=== PATIENT | female | born 1970 | race Caucasian/White ===

== ENCOUNTER 2020-06-16 08:37 | Emergency (ER) | payer OTHER, SELFPAY ==
--- NOTE | ~2020-06-16 | US_ITS ---
EXAMINATION: US venous doppler [facility] EXAM DATE: 06/16/2020 09:54 INDICATION: Left knee pain. TECHNIQUE: Multiple grayscale, color flow and Doppler images of the left lower extremity deep venous system were obtained and reviewed. There is no prior study for comparison. FINDINGS: The left common femoral, femoral and profunda veins demonstrate normal color flow, respirat ory variation, augmentation and compressibility. Compressibility, color flow confirmed within the le ft popliteal, posterior tibial, peroneal, and greater saphenous veins. IMPRESSION: 1. No left lower extremity deep venous thrombosis. Reviewed, dictated and finalized at location B. INE TECHNICIAN
[2020-06-16 09:17] VITALS: BP 151/98; PULSE 92; RESP 18; TEMP 36.1; O2SAT 100
--- NOTE | 2020-06-16 09:59 | ED.GENADULT ---
HPI - General Adult General Chief complaint: Extremity Problem,Nontraumatic Stated complaint: leg pain Time Seen by Provider: 06/16/20 09:22 Source: patient Mode of arrival: ambulatory Limitations: no limitations History of Present Illness HPI narrative: Patient is a 49-year-old -Citizen Of [place] female presented with chief complaint of pain to the posterior aspect of her left knee and upper calf that began yesterday and has continued to throb throughout the night. Patient denies the pain extending down her left calf or into her thigh. Patient denies noticeable swelling or tightness to her extremity. 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 Patient states that she has had minor aches and cramps in her legs before but this discomfort is out of the ordinary, so she became concerned. Patient states she did take Tylenol and apply Voltaren gel which helped slightly but did not resolve the pain. Patient denies any direct trauma or falls. Patient denies any shortness of breath or chest pain. Patient denies any fever, chills, cough, nausea, vomiting, diarrhea. Patient denies prior history of DVT. Patient states she has taken antibiotic for UTI but denies any chronic medical conditions Related Data Home Medications Medication Instructions Recorded Confirmed cephalexin 06/16/20 nitrofurantoin monohyd/m-cryst 06/16/20 Allergies Allergy/AdvReac Type Severity Reaction Status Date / Time seafood Allergy Severe Swelling Uncoded 06/16/20 09:27 Review of Systems Review of Systems: Narrative: CONSTITUTIONAL: Denies fever, chills, or sweats. EYES: Denies visual changes, redness, or discharge. ENT: Denies rhinorrhea, congestion, sore throat, or otalgia. CARDIOVASCULAR: Denies chest pain, palpitations, or edema. RESPIRATORY: Denies cough or dyspnea. GASTROINTESTINAL: Denies abdominal pain, nausea, vomiting, or diarrhea. GENITOURINARY: Denies dysuria or hematuria. SKIN: Denies rash or itching. MUSCULOSKELETAL: Reports left leg pain denies back pain, joint pain, or myalgia. NEUROLOGIC: Denies headache, numbness, dizziness, or weakness. PSYCHIATRIC: Denies anxiety or depression. PMFSH Social History Social History Gender identity (if verbalized by the patient): Female Exam Narrative: Exam Narrative: GENERAL: Well-appearing, well-nourished, and in no acute distress. HEAD: Normocephalic, atraumatic. EYES: PERRLA and EOMI. NECK: Supple. No adenopathy or masses. CHEST: Clear to auscultation. No respiratory distress. No wheezes rales or rhonchi HEART: Regular rate and rhythm. No murmur heard. Normal peripheral pulses. EXTREMITIES: Normal range of motion. No edema or erythema. Swelling or tightness not appreciated.cap refill distally intact. SKIN: Warm, dry, no rash. NEURO: No focal deficits. Alert and oriented x3. Gait steady. PSYCH: Normal mood and affect. Course Vital Signs Vital signs: Vital Signs Temperature 97.0 F L 06/16/20 09:17 Pulse Rate 92 06/16/20 09:17 Respiratory Rate 18 06/16/20 09:17 Blood Pressure 151/98 H 06/16/20 09:17 Pulse Oximetry 100 06/16/20 09:17 Temperature 97.0 F L 06/16/20 09:17 Pulse Rate 92 06/16/20 09:17 Respiratory Rate 18 06/16/20 09:17 Blood Pressure 151/98 H 06/16/20 09:17 Pulse Oximetry 100 06/16/20 09:17 Medical Decision Making MDM Narrative Medical decision making narrative: Patient doppler negative for DVT. Patient agrees that there has been no traua injury or no tenderness to palpation. She would like xray postponed at this time.Vitals are stable. No kanchan tenderness. ROM intact. Instructed patient to avoid strain. RICE and NSAIDS and follow up with her PCP for reevaluation if symptoms persists. Vital Signs Vital Signs: Vital Signs Temperature 97.0 F L 06/16/20 09:17 Pulse Rate 92 06/16/20 09:17 Respiratory Rate 18 06/16/20 09:17 Blood Pressure 151/98 H
== END 2020-06-16 10:27 | disposition home or self-care (01) ==
PROVIDERS: Emergency Provider Emergency Medicine; PCP Internal Medicine
DX: M25.562 Pain in left knee (principal)
CPT/HCPCS: 93971; 99284

== ENCOUNTER 2021-11-17 09:02 | Emergency (ER) | payer BC, SELFPAY ==
[2021-11-17 09:07] VITALS: BP 174/93; PULSE 86; RESP 16; TEMP 36.5; O2SAT 100
[2021-11-17 09:10] VITALS: O2SAT 99
[2021-11-17 09:15] VITALS: O2SAT 98
[2021-11-17 09:17] VITALS: BP 142/81; O2SAT 99
[2021-11-17 09:33] VITALS: O2SAT 99
[2021-11-17 09:41] LABS: D Dimer 0.31 ug/mL (<0.48)
--- NOTE | 2021-11-17 09:42 | ED.LOWEXIN ---
HPI - Extremity Injury (Lower) General Chief Complaint: Extremity Injury, Lower Stated Complaint: RLE spot Time Seen by Provider: 11/17/21 09:11 History of Present Illness HPI Narrative: 51-year-old female presented to the emergency room for evaluation of a bruise behind her right knee. Patient denies any injury or trauma. Patient states 2 days ago she noticed some pain and tenderness behind her right knee, and then observed a bruise approximately 4 cm in diameter. Patient does have a history of varicose veins. Patient denies any history of DVT/PEs, oral control, history of cancer, or long periods of immobility. Related Data Home Medications Medication Instructions Recorded Confirmed naproxen 500 mg tablet 1 tablet 11/17/21 Allergies Allergy/AdvReac Type Severity Reaction Status Date / Time seafood Allergy Severe Swelling Uncoded 11/17/21 09:07 Review of Systems Review of Systems: CONSTITUTIONAL: Denies fever, chills, or sweats. EYES: Denies visual changes, redness, or discharge. ENT: Denies rhinorrhea, congestion, sore throat, or otalgia. CARDIOVASCULAR: Denies chest pain, palpitations, or edema. RESPIRATORY: Denies cough or dyspnea. GASTROINTESTINAL: Denies abdominal pain, nausea, vomiting, or diarrhea. GENITOURINARY: Denies dysuria or hematuria. SKIN: Reports bruise to the right popliteal area MUSCULOSKELETAL: Denies back pain, joint pain, or myalgia. NEUROLOGIC: Denies headache, numbness, dizziness, or weakness. PSYCHIATRIC: Denies anxiety or depression. [facility] Social History Social History Gender identity (if verbalized by the patient): Female Exam Narrative: GENERAL: Well-appearing, well-nourished, no physical limitations, and in no acute distress. HEAD: Normocephalic, atraumatic. EYES: Conjunctivae normal, PERRLA and EOMI. CHEST: Clear to auscultation. No respiratory distress. No wheezes rales or rhonchi. No tenderness. HEART: Regular rate and rhythm. No murmur heard. Normal peripheral pulses. EXTREMITIES: Normal range of motion. No edema. No clubbing or cyanosis; right knee: No ecchymosis to the popliteal area with no soft tissue swelling; negative Homans' sign right leg; Mild bilaterally SKIN: Warm, dry, no rash. No noted wounds NEURO: No focal deficits. Alert and oriented x3. MAEW. CN's II-XI intact bilaterally, normal gait PSYCH: Cooperative. Normal mood and affect. Course Vital Signs Vital signs: Vital Signs Temperature 36.5 C 11/17/21 09:07 Pulse Rate 86 11/17/21 09:07 Respiratory Rate 16 11/17/21 09:07 Blood Pressure 174/93 H 11/17/21 09:07 Pulse Oximetry 100 11/17/21 09:07 Oxygen Delivery Room Air 11/17/21 09:07 Temperature 36.5 C 11/17/21 09:07 Pulse Rate 86 11/17/21 09:07 Respiratory Rate 16 11/17/21 09:07 Blood Pressure 174/93 H 11/17/21 09:07 Pulse Oximetry 100 11/17/21 09:07 Oxygen Delivery Room Air 11/17/21 09:07 MDM - Extremity Injury (Lower) Lab Data Labs: Lab Results 11/17/21 Range/Units 09:22 D-Dimer 0.31 (<0.48) ug/mL Discharge Plan Discharge Clinical Impression: Moncada's cyst, ruptured Patient Disposition: Home, Self-Care Condition: Stable Instructions: Antibiotic Form, Moncada Cyst (ED) Additional Instructions: Take Tylenol and ibuprofen as needed. Prescriptions: No Action naproxen 500 mg tablet 1 tablet Follow-up/Referrals: PHYSICIAN NOT ON STAFF,NONSTAFF [Primary Care Provider] - Time of Disposition: 09:49
[2021-11-17 09:45] VITALS: O2SAT 100
== END 2021-11-17 10:00 | disposition home or self-care (01) ==
PROVIDERS: Emergency Provider Nurse Practitioner Family
DX: M66.0 Rupture of popliteal cyst (principal)
CPT/HCPCS: 36415; 85380; 99283

== ENCOUNTER 2024-03-26 07:57 | Emergency (ER) | payer OTHER, SELFPAY ==
--- NOTE | ~2024-03-26 | XR_ITS ---
EXAMINATION: XR chest 1V DATE: 03/26/2024 08:50 INDICATION: Chest pain. Right arm pain. TECHNIQUE: A single frontal view of the chest was obtained. COMPARISON: None. FINDINGS: There is no pneumonia, pleural effusion, or pneumothorax. The heart size is normal. IMPRESSION: 1. No acute cardiopulmonary disease. Reviewed, dictated and finalized at location A. E MASON
--- NOTE | ~2024-03-26 | XR_ITS ---
XR shoulder RT min 2V Ordering provider: Kevan Rodriguez MD History: . RT shoulder pain RADIATING DOWN INTO ARM . Comparison: None. FINDINGS: BONES: No acute fracture or dislocation. JOINT SPACES: The acromioclavicular joint is normal. The glenohumeral joint is normal. Osteophyte for mation seen in the head of the humerus inferiorly. SOFT TISSUES: Normal. IMPRESSION: No acute osseous abnormality right shoulder. Reviewed, dictated and finalized at location A. LY CHAIN DIRECTOR
[2024-03-26 08:02] VITALS: BP 171/102; PULSE 81; RESP 16; TEMP 36.4; O2SAT 100
--- NOTE | 2024-03-26 08:05 | ECG_ITS ---
Test Date: 2024-03-26 08:07:18 Measurements Intervals [place] Rate: 80 P: 40 PA: 131 QRS: 5 QRSD: 81 T: 28 QT: 363 QTc: 420 Interpretive Statements SINUS RHYTHM NONSPECIFIC T-WAVE ABNORMALITY- LATERAL LEADS BASELINE ARTIFACT- I, II, AVR BORDERLINE ECG No previous ECG available for comparison Electronically Signed On 03-26-2024 08:13:50 TUB MENDER by Eligio Pena D.O.
--- NOTE | 2024-03-26 08:14 | ED_ITS ---
HPI - General Adult General Chief complaint: Extremity Problem,Nontraumatic Stated complaint: R arm numbness/pain x 2 weeks. Time Seen by Provider: 03/26/24 08:03 History of Present Illness HPI narrative: 53-year-old female present to the emergency department for evaluation for right shoulder pain. Patient does have history of a pinched nerve affecting her right shoulder. Patient initially had symptoms of this and December. Patient states that she was on a short course naproxen and this did help her pain. Patient states since the end of February she has had a recurrence of her symptoms. Patient sounds like she has been taking ibuprofen but not scheduled. Patient had been taking Tylenol for pain control but states this was bothering her stomach so she stopped. Patient states that the pain is usually very quick and short lasting. Patient states the pain was so intense this morning that she felt she needed to be evaluated. Upon arrival emergency department patient states she has no pain and declined any medications for pain control. Patient states she was concerned that this may have been her heart or a clot. Related Data Home Medications Medication Instructions Recorded Confirmed naproxen 500 mg tablet 1 tablet 11/17/21 Allergies Allergy/AdvReac Type Severity Reaction Status Date / Time seafood Allergy Severe Swelling Uncoded 03/26/24 07:58 Review of Systems Review of Systems: All systems reviewed & are unremarkable except as noted in HPI and below PMFSH Social History Social History Gender identity (if verbalized by the patient): Female Exam Narrative: APPEARANCE: Well appearing, no pain, no distress, well-nourished. HEAD: normocephalic, atraumatic. EYES: PERRLA/EOMI, conjunctivae clear. NOSE: Normal no drainage EARS:TMS clear with good light reflex. THROAT: Pharynx clear, no exudate. NECK: Supple. No adenopathy, no masses. RESPIRATORY: Airway patent, respirations nonlabored. Clear to auscultation bi laterally, no rales, rhonchi, wheezing. CARDIOVASCULAR: Regular rate and rhythm without murmurs rubs or gallops. ABDOMINAL: Soft, nontender, nondistended, normal bowel sounds MUSCULOSKELETAL: Right shoulder tenderness to palpation NEURO: Alert. Cranial nerves II through XII intact. Good gait. Good coordination SKIN: Warm, dry. Normal Color Course Vital Signs Vital signs: Vital Signs Temperature 97.5 F L 03/26/24 08:02 Pulse Rate 81 03/26/24 08:02 Respiratory Rate 16 03/26/24 08:02 Blood Pressure 171/102 H 03/26/24 08:02 Pulse Oximetry 100 03/26/24 08:02 Oxygen Delivery Room Air 03/26/24 08:02 Temperature 97.9 F 03/26/24 09:45 Pulse Rate 80 03/26/24 09:45 Respiratory Rate 16 03/26/24 09:45 Blood Pressure 148/90 H 03/26/24 09:45 Pulse Oximetry 99 03/26/24 09:45 Oxygen Delivery Room Air 03/26/24 08:02 Medical Decision Making MDM Narrative Medical decision making narrative: 53-year-old female present to the emergency department for evaluation for intermittent right shoulder pain. Patient is afebrile with no leukocytosis and hemoglobin of 13.3 with no acute abnormalities on her CMP, patient had negative serial troponins. Chest x-ray showed no acute cardiopulmonary abnormality and x-ray of the shoulder shows no acute fracture dislocation. Patient seems to be having radicular pain involving the shoulder. Patient will be started on anti- inflammatories and provided a sling for comfort. Patient was encouraged of close follow-up with her primary care physician. Differential Diagnosis Differential Diagnosis: Shoulder strain, rotator cuff strain, cervical radiculopathy Vital Signs Vital Signs: Vital Signs Temperature 97.5 F L 03/26/24 08:02 Pulse Rate 81 03/26/24 08:02 Respiratory Rate 16 03/26/24 08:02 Blood Pressure 171/102 H 03/26/24 08:02 Pulse Oximetry 100 03/26/24 08:02 Oxygen Delivery Room Air 03/26/24 08:02 Temperature 97.9 F 03/26/24 09:45 Pulse Rate 80 03/26/24 09:45 Respiratory Rate 16 03/26/24 09:45 Blood Pressure 148/90 H 03/26/24 09:45 Pulse Oximetry 99 03/26/24 09:45 Oxygen Delivery Room Air 03/26/24 08:02 Lab Data Lab results reviewed: Yes I reviewed the patient's lab results. 03/26/24 08:41 03/26/24 08:41 Labs: Lab Results 03/26/24 Range/Units 08:41 WBC 5.1 (4.5-10.0) K/mm3 RBC 5.33 (4.2-5.4) M/mm3 Hgb 13.0 (12.0-15.0) g/dL Hct 40.1 (37.0-47.0) % MCV 75.2 L (80-100) fl MCH 24.4 L (26-34) pg MCHC 32.4 (32-36) g/dl RDW 15.6 H (11.5-14.5) % Plt Count 242 (150-375) k/mm3 MPV 9.0 (7.4-10.4) fl Immature Gran % (Auto) 0.2 (0-0.5) % Neut % (Auto) 44.2 L (45.5-73.1) % Lymph % (Auto) 46.8 H (18.3-44.2) % [place] % (Auto) 7.0 (2.6-8.5) % Eos % (Auto) 1.4 (0-4.4) % Baso % (Auto) 0.4 (0.2-1.2) % Lymph # (Auto) 2.40 (0.9-3.2) K/mm3 [place] # (Auto) 0.4 (0.1-0.6) K/mm3 Eos # (Auto) 0.1 (0-0.3) K/mm3 Baso # (Auto) 0.0 (0.0-0.1) K/mm3 Abs Immat Gran (auto) 0.01 (0.00-0.031) K/mm3 Absolute Neuts (auto) 2.3 (1.3-6.7) K/mm3 Absolute Nucleated RBC 0.000 (0.0-0.012) K/mm3 Nucleated RBC % 0.0 (0.0-0.2) % PT 13.5 (11.1-14.7) Seconds INR 1.0 APTT 29.0 (22.3-36.8) Seconds Sodium 139 (137-145) mmol/L Potassium 3.8 (3.4-5.0) mmol/L Chloride 109 H (98-107) mmol/L Carbon Dioxide 26 (22-30) mmol/L Anion Gap 4 (4-12) mmol/L BUN 13 (7-17) mg/dL Creatinine 0.80 (0.7-1.0) mg/dL Estim Creat Clear Calc 83 ml/min Estimated GFR > 60 (59 - ) Glucose 96 (65-110) mg/dL Calcium 9.0 (8.4-10.2) mg/dL Total Bilirubin 0.8 (0.2-1.3) mg/dL AST 18 (14-36) U/L ALT 15 (6-35) U/L Alkaline Phosphatase 66 (38-126) U/L Troponin I < 0.012 (0.000-0.034) ng/mL Total Protein 7.0 (6.3-8.2) g/dL Albumin 3.8 (3.5-5.1) g/dL Imaging Data Radiologist's impression: Impressions Shoulder X-Ray 03/26/24 08:52 IMPRESSION: No acute osseous abnormality right shoulder. Chest X-Ray 03/26/24 08:53 IMPRESSION: 1. No acute cardiopulmonary disease. Discharge Plan Discharge Clinical Impression: Acute shoulder pain Patient Disposition: Home, Self-Care Condition: Stable Instructions: Antibiotic Form, How to Use a Sling (ED) Additional Instructions: Medrol Dosepak as directed for the shoulder pain. Flexeril for muscle spasm. Tylenol and ibuprofen for pain control. Have close follow-up with your primary care physician. If you have any worsening symptoms then please call or return to the emergency department. Prescriptions: New methylprednisolone [Medrol (Marcial)] 4 mg tablets,dose pack See Rx Instructions .ROUTE .COMPLEX Qty: 21 0RF Rx Instructions: for 6 days cyclobenzaprine 10 mg tablet 10 mg PO BID PRN (Reason: muscle spasm) Qty: 14 0RF No Action naproxen 500 mg tablet 1 tablet Follow-up/Referrals: PHYSICIAN NOT ON STAFF,NONSTAFF [Non-Staff] -
[2024-03-26 08:31] VITALS: BP 135/89; PULSE 80; RESP 16; TEMP 36.5; O2SAT 99
[2024-03-26 08:53] LABS: Basophils Percent Auto 0.4 % (0.2-1.2); Eosinophils Absolute Auto 0.1 K/mm3 (0-0.3); Eosinophils Percent Auto 1.4 % (0-4.4); Hematocrit 40.1 % (37.0-47.0); Immature Granulocyte Absolute 0.01 K/mm3 (0.00-0.031); Immature Granulocyte Percent A 0.2 % (0-0.5); Lymphocytes Percent Auto 46.8 % (18.3-44.2); Mean Corpuscular HGB Conc 32.4 g/dl (32-36); Mean Corpuscular Hemoglobin 24.4 pg (26-34); Mean Corpuscular Volume 75.2 fl (80-100); Monocytes Absolute Auto 0.4 K/mm3 (0.1-0.6); Neutrophils Absolute Auto 2.3 K/mm3 (1.3-6.7); Neutrophils Percent Auto 44.2 % (45.5-73.1); Platelet Count Result 242 k/mm3 (150-375); Red Blood Count 5.33 M/mm3 (4.2-5.4); Red Cell Distribution Width 15.6 % (11.5-14.5); White Blood Count 5.1 K/mm3 (4.5-10.0)
[2024-03-26 09:00] VITALS: BP 140/88; PULSE 82; RESP 16; TEMP 36.6; O2SAT 100
[2024-03-26 09:01] LABS: Alanine Aminotransferase 15 U/L (6-35); Albumin Level 3.8 g/dL (3.5-5.1); Alkaline Phosphatase 66 U/L (38-126); Anion Gap 4 mmol/L (4-12); Aspartate Amino Transferase 18 U/L (14-36); Bilirubin,Total 0.8 mg/dL (0.2-1.3); Blood Urea Nitrogen 13 mg/dL (7-17); Carbon Dioxide 26 mmol/L (22-30); Chloride 109 mmol/L (98-107); Estimated CRCL calculation 83 ml/min; Estimated Glomerular Filt Rate > 60; Glucose 96 mg/dL (65-110); Potassium 3.8 mmol/L (3.4-5.0); Sodium 139 mmol/L (137-145)
[2024-03-26 09:03] LABS: Prothrombin Time 13.5 Seconds (11.1-14.7)
[2024-03-26 09:13] LABS: Troponin I < 0.012 ng/mL (0.000-0.034)
[2024-03-26 09:45] VITALS: BP 148/90; PULSE 80; RESP 16; TEMP 36.6; O2SAT 99
== END 2024-03-26 10:01 | disposition home or self-care (01) ==
PROVIDERS: Emergency Provider Emergency Medicine
DX: M25.511 Pain in right shoulder (principal)
CPT/HCPCS: 36415; 71045; 73030; 80053; 84484; 85025; 85610; 85730; 93005; 99284; A4565